=== PATIENT | female | born 1970 | race Caucasian/White ===

== ENCOUNTER 2016-10-09 17:21 | Emergency (ER) | payer BC ==
[2016-10-09 17:29] VITALS: BP 137/84
--- NOTE | 2016-10-09 17:57 | UC ---
Dental HPI - HPI Summary HPI Summary: Pt has had unerupted upper 3rd molars for her whole life without problems or symptoms until a few months ago when R upper 3rd molar partially erupted. It was fine and painless until the last 2-3 days when pain and swelling around the gums increased. Worried about abscess. Has been swishing and cleaning the area well, feels more of the tooth pushing through. No fever or skin redness. - History of Current Complaint Chief Complaint: UCDentalProblem Stated Complaint: DENTAL Time Seen by Provider: 10/09/16 17:32 Hx Obtained From: Patient Hx Last Menstrual Period: 09/03/16 ?: No Onset/Duration: Gradual Onset, Lasting Days Severity: Moderate Aggravating: Chewing - Allergies/Home Medications Allergies/Adverse Reactions: Allergies Allergy/AdvReac Type Severity Reaction Status Date / Time Sulfamethoxazole Allergy Rash Verified 10/09/16 17:29 w/Trimethoprim [From Bactrim] Home Medications: Home Medications Ibuprofen TAB* [Motrin TAB* 600 MG] 600 mg PO Q8H PRN 10/09/16 [History Confirmed 10/09/16] PMH/Surg Hx/FS Hx/Imm Hx Previously Healthy: Yes - Surgical History Surgical History: Yes Surgery Procedure, Year, and Place: csection - Family History Known Family History: Negative: Blood Disorder - Social History Occupation: Employed Full-time Lives: With Family Alcohol Use: None Substance Use Type: None Smoking Status (MU): Never Smoked Tobacco Review of Systems Constitutional: Negative Skin: Negative Eyes: Negative ENT: Dental Pain Respiratory: Negative Cardiovascular: Negative Gastrointestinal: Negative Genitourinary: Negative Motor: Negative Neurovascular: Negative Musculoskeletal: Negative Neurological: Negative Psychological: Negative All Other Systems Reviewed And Are Negative: Yes Physical Exam Triage Information Reviewed: Yes Appearance: Well-Appearing, No Pain Distress, Well-Nourished Vital Signs: Initial Vital Signs Temp 99.4 F 10/09/16 17:24 Pulse 87 10/09/16 17:24 Resp 17 10/09/16 17:24 BP 137/84 10/09/16 17:24 Pulse Ox 100 10/09/16 17:24 Vital Signs Reviewed: Yes Eye Exam: Normal Eyes: Positive: Conjunctiva Clear ENT: Positive: Normal ENT inspection, Hearing grossly normal, Pharynx normal, TMs normal. Negative: Tonsillar swelling, Tonsillar exudate Dental Exam: Other - swelling and tenderness near tooth #1. Due to small mouth, exam limited and tooth not directly palpated Dental: Negative: Gross Decay/Caries @, Dental Fracture @ Neck exam: Normal Neck: Positive: Supple, Nontender, No Lymphadenopathy Respiratory Exam: Normal Respiratory: Positive: Chest non-tender, Lungs clear, Normal breath sounds, No respiratory distress, No accessory muscle use Cardiovascular Exam: Normal Cardiovascular: Positive: RRR, No Murmur Musculoskeletal Exam: Normal Neurological Exam: Normal Neurological: Positive: Alert Psychological Exam: Normal Skin Exam: Normal Dental Complaint Course/Dx - Differential Dx/Diagnosis Provider Diagnoses: Toothache #1 Discharge - Discharge Plan Condition: Stable Disposition: HOME Prescriptions: Penicillin VK TAB 500 MG(NF) [Penicillin VK 500 mg Tab(NF)] 500 mg PO QID #28 tab Patient Education Materials: Toothache (ED) Additional Instructions: Follow up with your dentist next week to arrange for an exam and x-rays. Come back if you have new or severe symptoms.
== END 2016-10-09 17:57 | disposition home or self-care (01) ==
LOC: UCCORT 17:21
DX: K08.89 Other specified disorders of teeth and supporting structures (principal); Z88.2 Allergy status to sulfonamides
CPT/HCPCS: 99202; G0463

== ENCOUNTER 2018-02-22 16:03 | Emergency (ER) | payer BC ==
[2018-02-22 16:27] VITALS: BP 138/82
--- NOTE | 2018-02-22 16:49 | UC ---
General HPI - HPI Summary HPI Summary: Patient states "I think I have thrush". She is also complaining of a current yeast vaginitis which is resolving with [id number] Monistat. She thinks that she has thrush because her tongue and mouth are sore. She states that she just had her gallbladder removed 4 days ago and while hospitalized she was on Zosyn. She denies any history of diabetes and reports that she just had an A1c last month which is normal. - History of Current Complaint Chief Complaint: UCDentalProblem Stated Complaint: POSSIBLE THRUSH Time Seen by Provider: 02/22/18 16:42 Hx Obtained From: Patient Hx Last Menstrual Period: 02/05/18 Onset/Duration: Gradual Onset Timing: Constant Pain Intensity: 2 Associated Signs & Symptoms: Negative: Dysuria, Fever - Allergy/Home Medications Allergies/Adverse Reactions: Allergies Allergy/AdvReac Type Severity Reaction Status Date / Time sulfamethoxazole Allergy Rash Verified 02/22/18 16:27 [From Bactrim] trimethoprim [From Bactrim] Allergy Rash Verified 02/22/18 16:27 PMH/Surg Hx/FS Hx/Imm Hx GI/ History: Gall Bladder Disease - Surgical History Surgical History: Yes Surgery Procedure, Year, and Place: csection. Gallbladder surgery 02/17/18 - Family History Known Family History: Positive: Other - Lymphoma Negative: Blood Disorder - Social History Lives: With Family Alcohol Use: None Substance Use Type: None Smoking Status (MU): Never Smoked Tobacco - Immunization History Vaccination Up to Date: Yes Review of Systems Constitutional: Negative Skin: Negative Eyes: Negative ENT: Sore Throat Respiratory: Negative Cardiovascular: Negative Gastrointestinal: Negative Genitourinary: Vaginal/Penile Itching Motor: Negative Neurovascular: Negative Musculoskeletal: Negative Neurological: Negative Psychological: Negative Is Patient Immunocompromised?: No All Other Systems Reviewed And Are Negative: Yes Physical Exam Triage Information Reviewed: Yes Appearance: Well-Appearing Vital Signs: Initial Vital Signs Temp 97.7 F 02/22/18 16:22 Pulse 87 02/22/18 16:22 Resp 20 02/22/18 16:22 BP 138/82 02/22/18 16:22 Pulse Ox 100 02/22/18 16:22 Vital Signs Reviewed: Yes Eyes: Positive: Conjunctiva Clear ENT: Positive: Pharyngeal erythema - uvula and soft palate with red spots, TMs normal, Other - no plaques or exudates. Negative: Nasal congestion, Nasal drainage, Tonsillar swelling, Tonsillar exudate Neck: Positive: Supple, Nontender, Enlarged Nodes @ - peritonsilar Respiratory: Positive: Lungs clear, Normal breath sounds Cardiovascular: Positive: RRR, No Murmur Abdomen Description: Positive: Nontender, No Organomegaly, Soft, Other: - post op sites closed with no erythema or swelling. Negative: Distended, Guarding Bowel Sounds: Positive: Present Pelvic Exam: Positive: Other - declined Musculoskeletal: Positive: ROM Intact Neurological: Positive: Alert Psychological: Positive: Age Appropriate Behavior Skin Exam: Normal Diagnostics - Laboratory Diagnostic Studies Completed/Ordered: rapid strep=neg Course/Dx - Course Course Of Treatment: no thick white plaques to support thrush plus inflammation very focal to uvula and soft palate. rapid strep=neg, tx supportive. yeast vaginitis responding to otc tx thus no change. pt declined pelvic exam. - Differential Dx - Multi-Symptom Provider Diagnoses: pharyngitis. vaginitis Discharge - Sign-Out/Discharge Documenting (check all that apply): Patient Departure All imaging exams completed and their final reports reviewed: No Studies - Discharge Plan Condition: Stable Disposition: HOME Prescriptions: Magic M W2 Ernie/Maal/Nyst/Lido* 5 ml SWISH SPIT QID #120 ml Patient Education Materials: Pharyngitis (ED), Vaginitis (ED) Referrals: Maricruz Espinoza NP [Primary Care Provider] - 5 Days Additional Instructions: continue the monistat per label - Billing Disposition and Condition Condition: STABLE Disposition: Home
== END 2018-02-22 17:38 | disposition home or self-care (01) ==
LOC: UCCORT 16:03
DX: J02.9 Acute pharyngitis, unspecified (principal); N76.0 Acute vaginitis; Z90.49 Acquired absence of other specified parts of digestive tract; Z88.2 Allergy status to sulfonamides
CPT/HCPCS: 87651; 99212; G0463